=== PATIENT | female | born 1940 | race Caucasian/White ===

== ENCOUNTER 2017-08-04 10:22 | Day surgery (SDC) | payer BC ==
[2017-08-04 19:46] VITALS: BP 100/57; TEMP 98.1
== END 2017-08-04 19:51 | disposition home or self-care (01) ==
LOC: ONC/OP 10:22
PROVIDERS: ATTEND Internal Medicine Nephrology
PROC: 30233N1 Transfusion of Nonautologous Red Blood Cells into Peripheral Vein, Percutaneous Approach (ICD-10-PCS; principal; 2017-08-04)
DX: D64.9 Anemia, unspecified (principal)
CPT/HCPCS: 36415; 36430; 86850; 86900; 86901; P9016

== ENCOUNTER 2018-01-07 19:06 | Day surgery (SDC) | payer BC ==
[2018-01-08 00:53] VITALS: TEMP 98.3
[2018-01-08 04:53] VITALS: BP 109/51
[2018-01-08] MEDS ORDERED: Prevnar 13-Val Conj/PF 0.5 ML SYRINGE IM ONE (09:00)
== END 2018-01-08 05:20 | disposition home or self-care (01) ==
LOC: ONC/OP 19:06 → ONC 19:33 → ONC/OP 01-08 05:20
PROVIDERS: ATTEND Internal Medicine Nephrology
PROC: 30233N1 Transfusion of Nonautologous Red Blood Cells into Peripheral Vein, Percutaneous Approach (ICD-10-PCS; principal; 2018-01-08)
DX: I12.0 Hypertensive chronic kidney disease with stage 5 chronic kidney disease or end stage renal disease (principal); E11.22 Type 2 diabetes mellitus with diabetic chronic kidney disease; N18.6 End stage renal disease; D63.1 Anemia in chronic kidney disease; Z99.2 Dependence on renal dialysis
CPT/HCPCS: 36415; 36430; 86850; 86900; 86901; P9016

== ENCOUNTER 2018-01-29 19:44 | Inpatient (IN) | payer BC, MEDICARE ==
[2018-01-29 21:58] VITALS: BMI 27.4
[2018-01-30 04:26] VITALS: BP 114/78; TEMP 98.1
== END 2018-01-30 07:30 | disposition home or self-care (01) | DRG 812 ==
LOC: ONC 19:44
PROVIDERS: ADMIT Internal Medicine Nephrology; ATTEND Internal Medicine Nephrology
PROC: 30233N1 Transfusion of Nonautologous Red Blood Cells into Peripheral Vein, Percutaneous Approach (ICD-10-PCS; principal; 2018-01-29)
DX: D64.9 Anemia, unspecified (principal)
CPT/HCPCS: 36415; 36430; 86850; 86900; 86901; P9016